=== PATIENT | female | born 1945 | race Caucasian/White ===

== ENCOUNTER 2021-12-04 20:02 | Emergency (ER) | payer OTHER ==
[~2021-12-04] VITALS: Ht 162.6 cm; Wt 77.3 kg
[2021-12-04 23:23] VITALS: BP 120/82
== END 2021-12-05 02:00 | disposition home or self-care (01) ==
LOC: EMS 20:06
DX: S90.32XA Contusion of left foot, initial encounter (principal); I10 Essential (primary) hypertension; F32.9 Major depressive disorder, single episode, unspecified; Z88.8 Allergy status to other drugs, medicaments and biological substances; W22.8XXA Striking against or struck by other objects, initial encounter; Y93.89 Activity, other specified; Y92.89 Other specified places as the place of occurrence of the external cause; Y99.8 Other external cause status
CPT/HCPCS: 99283

== ENCOUNTER 2022-05-21 16:04 | Emergency (ER) | payer MEDICARE ==
[~2022-05-21] VITALS: Ht 162.6 cm; Wt 79.5 kg
[2022-05-21 16:17] VITALS: BP 130/95
[2022-05-21] MEDS ORDERED: HYDROCODONE/ACETAMINOPHEN 5-325 MG TABLET PO ONE (18:15)
[2022-05-21] MEDS ORDERED: TRAM50TA2 PO (18:31)
== END 2022-05-21 21:34 | disposition home or self-care (01) ==
LOC: EMS 16:13
DX: M25.552 Pain in left hip (principal); F32.9 Major depressive disorder, single episode, unspecified; I10 Essential (primary) hypertension
CPT/HCPCS: 99283

== ENCOUNTER → 2022-05-26 | Outpatient (CLI) | payer MEDICARE ==
[~2022-05-26] MED LIST: TRAM50TA2 PO
== END | disposition home or self-care (01) ==
LOC: RADMN 12:28
PROVIDERS: ATTEND Family Medicine
DX: M16.12 Unilateral primary osteoarthritis, left hip (principal); M47.817 Spondylosis without myelopathy or radiculopathy, lumbosacral region; M51.37 Other intervertebral disc degeneration, lumbosacral region; M48.061 Spinal stenosis, lumbar region without neurogenic claudication; M79.605 Pain in left leg
CPT/HCPCS: 72148; 73721